=== PATIENT | female | born 1940 | race Caucasian/White ===

== ENCOUNTER 2016-05-12 08:04 | Day surgery (SDC) | payer MEDICARE, BC ==
[2016-05-12 08:56] LABS: Anion Gap 14 mmol/L (10-20); BUN (Urea Nitrogen) 19 mg/dL (9.8-20.1); Calc. Creatinine Clearance 0 mL/min (70-130); Calcium 9.9 mg/dL (7.8-10.44); Carbon Dioxide 22 mmol/L (23-31); Chloride 110 mmol/L (98-107); Estimated GFR-MDRD 42
[2016-05-12 08:57] LABS: Bilirubin Negative (Negative); Blood, Urine Trace (Negative); Glucose, Urine (Dipstick) Negative (Negative); Ketone, Urine Negative (Negative); Nitrite Negative (Negative); Protein, Urine (Dipstick) 30 mg/dL (Neg-Trace); Urobilinogen 0.2 mg/dL (0.2-1.0)
[2016-05-12 09:10] LABS: Bacteria/HPF Rare-Few HPF (None Seen); RBC/HPF 0-3 HPF (0-3); Squamous Epithelial 0-3 HPF (0-3); WBC/HPF 0-3 HPF (0-3)
--- NOTE | 2016-05-12 21:09 | CT ---
CT ABDOMEN AND PELVIS WITHOUT CONTRAST 05/12/[address] of the abdomen and pelvis was done with oral but without IV contrast for evaluation of low er abdominal pain. IV contrast was withheld given a slightly borderline renal function test. Axial s lices were acquired, then coronal reconstructions were done. The lung bases are clear. The liver, spleen, pancreas, adrenal glands, kidneys, and abdominal aorta show no acute findings within the limitations of a noncontrast study. There is a subtle subcentimete r low density area in the upper pole of the left kidney that is most likely a small cyst, but ultras ound would be needed for confirmation. Multiple gallstones are seen in the neck of the gallbladder. The gallbladder is not enlarged. The bowel is nondistended. There are no inflammatory changes around bowel. There is no sign of obstr uction. No mesenteric adenopathy was seen. There is either some retained food stuff and/or wall thic kening in the stomach. If they were upper abdominal symptoms, then this might bear further investiga tion. CT of the pelvis showed no pelvic masses, fluid collections, adenopathy, or inflammatory changes. Th ere were no findings to explain lower abdominal pain. IMPRESSION: 1. Gallstones. 2. No acute abdominal findings. 3. Slight wall thickening versus retained food in the stomach. POS: HOME
== END 2016-05-12 08:30 | disposition home or self-care (01) ==
LOC: BUR/OP 08:04
PROVIDERS: ATTEND Family Medicine
DX: R10.30 Lower abdominal pain, unspecified (principal); R82.90 Unspecified abnormal findings in urine
CPT/HCPCS: 36415; 74176; 80048; 81001; 87086